=== PATIENT | female | born 1960 | race Caucasian/White ===

== ENCOUNTER 2016-10-15 14:33 | Outpatient (CLI) | payer MEDICARE, MEDICAID ==
[2016-10-15 15:40] LABS: Free T4 (Free Thyroxine) 0.7 ng/dL (0.70-1.48); Thyroid Stimulating Hormone 1.9238 uIU/mL (0.35-4.94)
== END 2016-10-15 14:34 | disposition home or self-care (01) ==
LOC: MADLABBHPM 14:33
PROVIDERS: ATTEND Family Medicine
DX: E03.9 Hypothyroidism, unspecified (principal)
CPT/HCPCS: 36415; 84439; 84443

== ENCOUNTER 2016-12-22 13:10 | Emergency (ER) | payer MEDICARE, MEDICAID ==
[~2016-12-22 13:10] MED LIST: Dextrose 5 % And 0.9 % NaCl 1000 ml Bag ONE
[2016-12-22 13:57] LABS: #Basophils 0.1 thou/uL (0.0-0.2); #Eosinphils 0.1 thou/uL (0.0-0.7); #Lymphocytes 1.6 thou/uL (1.20-3.40); #Monocytes 0.4 thou/uL (0.11-0.59); %Basophils 1.4 % (0.0-1.0); %Eosinophils 1.3 % (0.0-10.0); %Lymphocytes 30.6 % (21.0-51.0); %Monocytes 7.9 % (0.0-10.0); %Neutrophils 58.9 % (42.0-75.0); Hemoglobin 14.1 g/dL (12.0-16.0); MDiff Complete? YES; Macrocytosis SLIGHT = 6-15 cells (100X) (0-5/hpf); Mean Corpuscular HGB CONC 33.9 g/dL (32.0-36.0); Mean Corpuscular Hemoglobin 35.5 pg (27.0-31.0); Mean Corpuscular Volume 104.7 fl (81.0-99.0); Mean Platelet Volume 6.3 fL (7.4-10.4); PLT Morphology Comment Appears Adequate; Platelet Count 175 thou/uL (130-400); RBC Distribution Width 11.5 % (11.5-14.5); Red Blood Cell (RBC) Count 3.98 mill/uL (4.20-5.40); White Blood Cell (WBC) Count 5.1 thou/uL (4.8-10.8)
[2016-12-22 14:05] LABS: ALT (SGPT) 14 U/L (0-55); AST (SGOT) 13 U/L (5-34); Albumin 3.6 g/dL (3.5-5.0); Alkaline Phosphatase 78 U/L (40-150); Anion Gap 10 mmol/L (10-20); BUN (Urea Nitrogen) 10 mg/dL (9.8-20.1); Bilirubin, Total 0.3 mg/dL (0.2-1.2); Calc. Creatinine Clearance 0 mL/min (70-130); Calcium 8.6 mg/dL (7.8-10.44); Carbon Dioxide 22 mmol/L (22-29); Chloride 110 mmol/L (98-107); Estimated GFR-MDRD 73; Globulin 2.2 g/dL (2.4-3.5); Glucose 99 mg/dL (70-105); Potassium 4.2 mmol/L (3.5-5.1); Protein, Total 5.8 g/dL (6.0-8.3); Sodium 138 mmol/L (136-145)
[2016-12-22 14:07] LABS: CKMB 2.2 ng/mL (0-6.6); Troponin I Less than 0.010 ng/mL (< 0.028)
== END 2016-12-22 16:25 | disposition home or self-care (01) ==
LOC: MADERS 13:10
DX: E86.0 Dehydration (principal); E03.9 Hypothyroidism, unspecified; G43.909 Migraine, unspecified, not intractable, without status migrainosus; F17.210 Nicotine dependence, cigarettes, uncomplicated; F31.9 Bipolar disorder, unspecified; Z79.899 Other long term (current) drug therapy
CPT/HCPCS: 36415; 80053; 82553; 84443; 84484; 85025; 93005; 96360; 96361; J7042

== ENCOUNTER 2016-12-29 09:02 | Emergency (ER) | payer MEDICARE, MEDICAID ==
--- NOTE | 2016-12-29 10:22 | CT ---
BRAIN CT WITHOUT IV CONTRAST: Date: 12/29/16 HISTORY: 56-year-old female with altered mental status. COMPARISON: 03/17/16. FINDINGS: Old small focus of encephalomalacia in the right posterior parietal lobe, evidence for an old infarc t or other old insult. No focal mas or midline shift. No intra or extra-axial hemorrhage. Sinuses an d mastoids are clear. IMPRESSION: Stable small focus of right posterior parietal encephalomalacia. No mass or bleed, or other acute pr ocess. POS: [facility]
[2016-12-29] MEDS ORDERED: Acetaminophen 500 MG TAB ONE (10:56)
[2016-12-29] MEDS ORDERED: Ibuprofen 600 MG TAB ONE (10:56)
--- NOTE | 2016-12-29 11:01 | RAD ---
THREE VIEWS RIGHT HAND: Comparison: 03-22-15 History: Fall with right hand pain. FINDINGS: Three views of the right hand shows no evidence of acute fracture or dislocation. There are small os seous erosions surrounding the DIP joint of the middle finger. No focal soft tissue swelling is seen . IMPRESSION: 1. No evidence of acute osseous abnormality. 2. Degenerative changes involving the DIP joint of the middle finger. POS: [facility]
== END 2016-12-29 11:10 ==
LOC: MADERS 09:02
DX: S60.221A Contusion of right hand, initial encounter (principal); E03.9 Hypothyroidism, unspecified; Z86.73 Personal history of transient ischemic attack (TIA), and cerebral infarction without residual deficits; F32.9 Major depressive disorder, single episode, unspecified; F17.210 Nicotine dependence, cigarettes, uncomplicated; Z79.899 Other long term (current) drug therapy; W22.8XXA Striking against or struck by other objects, initial encounter
CPT/HCPCS: 70450

== ENCOUNTER 2017-01-13 17:03 | Emergency (ER) | payer MEDICARE, OTHER ==
[~2017-01-13 17:03] MED LIST changes: +Sodium Chloride 0.9% 1,000 ML BAG ONE
[2017-01-13 18:03] LABS: #Basophils 0.1 thou/uL (0.0-0.2); #Eosinphils 0.1 thou/uL (0.0-0.7); #Lymphocytes 1.7 thou/uL (1.20-3.40); #Monocytes 0.4 thou/uL (0.11-0.59); #Neutrophils 2.3 thou/uL (1.40-6.50); %Basophils 1.8 % (0.0-1.0); %Eosinophils 1.3 % (0.0-10.0); %Lymphocytes 38.8 % (21.0-51.0); %Monocytes 7.7 % (0.0-10.0); %Neutrophils 50.3 % (42.0-75.0); Anisocytosis SLIGHT = 6-15 cells (100X) (0-5/hpf); Hemoglobin 14.9 g/dL (12.0-16.0); MDiff Complete? YES; Mean Corpuscular HGB CONC 33.8 g/dL (32.0-36.0); Mean Corpuscular Volume 103.8 fl (81.0-99.0); Mean Platelet Volume 6.2 fL (7.4-10.4); Platelet Count 164 thou/uL (130-400); RBC Distribution Width 11.1 % (11.5-14.5); Red Blood Cell (RBC) Count 4.25 mill/uL (4.20-5.40); White Blood Cell (WBC) Count 4.5 thou/uL (4.8-10.8)
[2017-01-13] MEDS ORDERED: Ondansetron HCl/PF 4 MG/2 ML Vial ONE (18:03)
[2017-01-13 18:17] LABS: ALT (SGPT) 15 U/L (0-55); AST (SGOT) 14 U/L (5-34); Albumin 3.9 g/dL (3.5-5.0); Alcohol Less than 10 mg/dL (Less than 10); Alkaline Phosphatase 81 U/L (40-150); Anion Gap 12 mmol/L (10-20); BUN (Urea Nitrogen) 17 mg/dL (9.8-20.1); Bilirubin, Total 0.3 mg/dL (0.2-1.2); Calc. Creatinine Clearance 0 mL/min (70-130); Calcium 8.9 mg/dL (7.8-10.44); Carbon Dioxide 20 mmol/L (22-29); Chloride 112 mmol/L (98-107); Estimated GFR-MDRD 75; Globulin 2.2 g/dL (2.4-3.5); Glucose 102 mg/dL (70-105); Potassium 3.9 mmol/L (3.5-5.1); Protein, Total 6.1 g/dL (6.0-8.3); Sodium 140 mmol/L (136-145)
[2017-01-13 18:40] LABS: Blood, Urine Trace (Negative); Clarity Cloudy (Clear); Glucose, Urine (Dipstick) Negative (Negative); Leukocyte Negative (Negative); Nitrite Negative (Negative); Protein, Urine (Dipstick) Negative (Neg-Trace); pH, Urine 5.5 (5.0-9.0)
[2017-01-13 18:43] LABS: Specific Gravity, Urine 1.022 (1.002-1.036)
[2017-01-13 18:44] LABS: Bilirubin Negative (Negative); Icto Negative (Negative)
[2017-01-13 18:48] LABS: Bacteria/HPF 2+ HPF (None Seen); WBC/HPF 0-3 HPF (0-3)
[2017-01-13 18:49] LABS: Crystals/HPF 1+ CA OXALATE HPF (Negative)
[2017-01-13 18:50] LABS: Amphetamine Not Detected (NotDetected); Barbiturates Screen Not Detected (NotDetected); Benzodiazepine Screen Detected (NotDetected); Cocaine Metabolite Screen Not Detected (NotDetected); Medtox Control Line Valid? VALID (VALID); Methadone Not Detected (NotDetected); Methamphetamine Not Detected (NotDetected); Opiate Screen Not Detected (NotDetected); Oxycodone Screen Not Detected (NotDetected); Phencyclidine (PCP) Not Detected (NotDetected); THC/Cannabinoid Screen Not Detected (NotDetected); Tricyclic Screen Detected (NotDetected)
== END 2017-01-13 19:45 | disposition home or self-care (01) ==
LOC: MADERS 17:03
DX: F32.9 Major depressive disorder, single episode, unspecified (principal); E86.0 Dehydration; G43.909 Migraine, unspecified, not intractable, without status migrainosus; F17.210 Nicotine dependence, cigarettes, uncomplicated
CPT/HCPCS: 80053; 80306; 80307; 81003; 81015; 85025; 96361; 96374; J2405; J7042; J7050

== ENCOUNTER 2017-04-05 13:02 | Outpatient (CLI) | payer MEDICARE, OTHER ==
[2017-04-05 13:27] LABS: PTT 43.2 SEC (22.9-36.1); Prothrombin Time 13.1 SEC (12.0-14.7)
[2017-04-05 13:37] LABS: ALT (SGPT) 9 U/L (8-55); AST (SGOT) 12 U/L (5-34); Albumin 3.7 g/dL (3.5-5.0); Alkaline Phosphatase 85 U/L (40-150); Anion Gap 14 mmol/L (10-20); BUN (Urea Nitrogen) 11 mg/dL (9.8-20.1); Bilirubin, Total 0.3 mg/dL (0.2-1.2); Calc. Creatinine Clearance 0 mL/min (70-130); Calcium 8.2 mg/dL (7.8-10.44); Carbon Dioxide 19 mmol/L (22-29); Chloride 93 mmol/L (98-107); Estimated GFR-MDRD 79; Globulin 3.4 g/dL (2.4-3.5); Glucose 89 mg/dL (70-105); Potassium 4.3 mmol/L (3.5-5.1); Protein, Total 7.1 g/dL (6.0-8.3); Sodium 122 mmol/L (136-145)
[2017-04-05 13:40] LABS: #Basophils 0.1 thou/uL (0.0-0.2); #Eosinphils 0.1 thou/uL (0.0-0.7); #Lymphocytes 1.4 thou/uL (1.20-3.40); #Monocytes 0.3 thou/uL (0.11-0.59); #Neutrophils 3.8 thou/uL (1.40-6.50); %Basophils 1.3 % (0.0-1.0); %Eosinophils 1.2 % (0.0-10.0); %Lymphocytes 24.7 % (21.0-51.0); %Monocytes 5.9 % (0.0-10.0); Anisocytosis SLIGHT = 6-15 cells (100X) (0-5/hpf); Hemoglobin 12.8 g/dL (12.0-16.0); MDiff Complete? YES; Mean Corpuscular HGB CONC 34.9 g/dL (32.0-36.0); Mean Corpuscular Hemoglobin 35.4 pg (27.0-31.0); Mean Corpuscular Volume 101.6 fl (81.0-99.0); Mean Platelet Volume 4.9 fL (7.4-10.4); PLT Morphology Comment Appears Adequate; Platelet Count 223 thou/uL (130-400); RBC Distribution Width 12.4 % (11.5-14.5); White Blood Cell (WBC) Count 5.6 thou/uL (4.8-10.8)
[2017-04-05 14:16] LABS: Free T4 (Free Thyroxine) 0.83 ng/dL (0.70-1.48); Thyroid Stimulating Hormone 0.4059 uIU/mL (0.35-4.94)
== END 2017-04-05 13:03 | disposition home or self-care (01) ==
LOC: MADLABBHPM 13:02
PROVIDERS: ATTEND Family Medicine
DX: E03.9 Hypothyroidism, unspecified (principal); R23.8 Other skin changes; K14.8 Other diseases of tongue
CPT/HCPCS: 36415; 80053; 84439; 84443; 85025; 85610; 85730

== ENCOUNTER 2017-05-14 09:46 | Outpatient (CLI) | payer MEDICARE, OTHER ==
[2017-05-14 10:56] LABS: ALT (SGPT) 19 U/L (8-55); AST (SGOT) 17 U/L (5-34); Albumin 4.6 g/dL (3.5-5.0); Alkaline Phosphatase 96 U/L (40-150); Anion Gap 12 mmol/L (10-20); BUN (Urea Nitrogen) 9 mg/dL (9.8-20.1); Bilirubin, Total 0.3 mg/dL (0.2-1.2); Calc. Creatinine Clearance 0 mL/min (70-130); Calcium 9.4 mg/dL (7.8-10.44); Carbon Dioxide 25 mmol/L (22-29); Chloride 109 mmol/L (98-107); Estimated GFR-MDRD 66; Globulin 2.9 g/dL (2.4-3.5); Glucose 106 mg/dL (70-105); Potassium 4.2 mmol/L (3.5-5.1); Protein, Total 7.5 g/dL (6.0-8.3); Sodium 142 mmol/L (136-145)
[2017-05-14 10:58] LABS: Clarity Clear (Clear)
[2017-05-14 10:59] LABS: Bilirubin Negative (Negative); Blood, Urine Trace (Negative); Glucose, Urine (Dipstick) Negative (Negative); Leukocyte Negative (Negative); Nitrite Negative (Negative); Protein, Urine (Dipstick) Negative (Neg-Trace); Urobilinogen 0.2 mg/dL (0.2-1.0); pH, Urine 6.5 (5.0-9.0)
[2017-05-14 11:20] LABS: Hemoglobin A1c 4.4 % (4.0-6.0)
[2017-05-14 11:22] LABS: Bacteria/HPF Rare-Few HPF (None Seen); Cocaine Metabolite Screen Not Detected (NotDetected); Methamphetamine Not Detected (NotDetected); Opiate Screen Not Detected (NotDetected); Phencyclidine (PCP) Not Detected (NotDetected); RBC/HPF 0-3 HPF (0-3); THC/Cannabinoid Screen Not Detected (NotDetected); WBC/HPF 0-3 HPF (0-3); Yeast-All Forms Rare HPF (None Seen)
[2017-05-14 11:23] LABS: Amphetamine Not Detected (NotDetected); Barbiturates Screen Not Detected (NotDetected); Benzodiazepine Screen Detected (NotDetected); Medtox Control Line Valid? VALID (VALID); Methadone Not Detected (NotDetected); Oxycodone Screen Not Detected (NotDetected); Tricyclic Screen Detected (NotDetected)
[2017-05-14 11:44] LABS: Free T4 (Free Thyroxine) 0.86 ng/dL (0.70-1.48); Thyroid Stimulating Hormone 0.2611 uIU/mL (0.35-4.94)
[2017-05-14 11:48] LABS: #Basophils 0.1 thou/uL (0.0-0.2); #Lymphocytes 1.8 thou/uL (1.20-3.40); #Monocytes 0.5 thou/uL (0.11-0.59); #Neutrophils 6.3 thou/uL (1.40-6.50); %Basophils 1.3 % (0.0-1.0); %Eosinophils 0.5 % (0.0-10.0); %Lymphocytes 20.3 % (21.0-51.0); %Monocytes 5.4 % (0.0-10.0); %Neutrophils 72.6 % (42.0-75.0); MDiff Complete? YES; Macrocytosis SLIGHT = 6-15 cells (100X) (0-5/hpf); Mean Corpuscular Hemoglobin 35.3 pg (27.0-31.0); Mean Corpuscular Volume 106.9 fl (81.0-99.0); Platelet Count 249 thou/uL (130-400); RBC Distribution Width 12.5 % (11.5-14.5); Red Blood Cell (RBC) Count 4.24 mill/uL (4.20-5.40); White Blood Cell (WBC) Count 8.7 thou/uL (4.8-10.8)
== END 2017-05-14 09:47 | disposition home or self-care (01) ==
LOC: MADLABBHPM 09:46
PROVIDERS: ATTEND Family Medicine
DX: R41.82 Altered mental status, unspecified (principal)
CPT/HCPCS: 36415; 80053; 80306; 81001; 83036; 84439; 84443; 85025

== ENCOUNTER 2017-05-24 09:46 | Emergency (ER) | payer MEDICARE, OTHER ==
[2017-05-24 12:18] LABS: #Eosinphils 0.1 thou/uL (0.0-0.7); #Lymphocytes 1.5 thou/uL (1.20-3.40); #Monocytes 0.3 thou/uL (0.11-0.59); #Neutrophils 3.4 thou/uL (1.40-6.50); %Basophils 0.9 % (0.0-1.0); %Eosinophils 1.3 % (0.0-10.0); %Lymphocytes 27.8 % (21.0-51.0); %Monocytes 5.6 % (0.0-10.0); %Neutrophils 64.5 % (42.0-75.0); Hemoglobin 13.7 g/dL (12.0-16.0); Mean Corpuscular Hemoglobin 34.3 pg (27.0-31.0); Mean Corpuscular Volume 107.2 fl (81.0-99.0); Mean Platelet Volume 5.2 fL (7.4-10.4); Platelet Count 190 thou/uL (130-400); RBC Distribution Width 12.2 % (11.5-14.5); Red Blood Cell (RBC) Count 3.99 mill/uL (4.20-5.40); White Blood Cell (WBC) Count 5.3 thou/uL (4.8-10.8)
[2017-05-24 12:29] LABS: Anisocytosis SLIGHT = 6-15 cells (100X) (0-5/hpf); Macrocytosis SLIGHT = 6-15 cells (100X) (0-5/hpf)
[2017-05-24 12:30] LABS: PLT Morphology Comment Appears Adequate
[2017-05-24 12:32] LABS: ALT (SGPT) 21 U/L (8-55); AST (SGOT) 15 U/L (5-34); Albumin 3.8 g/dL (3.5-5.0); Alkaline Phosphatase 81 U/L (40-150); Anion Gap 10 mmol/L (10-20); BUN (Urea Nitrogen) 15 mg/dL (9.8-20.1); Bilirubin, Total 0.3 mg/dL (0.2-1.2); Calc. Creatinine Clearance 0 mL/min (70-130); Calcium 8.5 mg/dL (7.8-10.44); Carbon Dioxide 22 mmol/L (22-29); Chloride 112 mmol/L (98-107); Estimated GFR-MDRD 72; Globulin 2.5 g/dL (2.4-3.5); Glucose 96 mg/dL (70-105); Potassium 3.9 mmol/L (3.5-5.1); Protein, Total 6.3 g/dL (6.0-8.3); Sodium 140 mmol/L (136-145)
[2017-05-24 12:42] LABS: Clarity Clear (Clear); Specific Gravity, Urine 1.025 (1.005-1.030)
[2017-05-24 12:43] LABS: Bilirubin Negative (Negative); Blood, Urine Negative (Negative); Glucose, Urine (Dipstick) Negative (Negative); Leukocyte Negative (Negative); Nitrite Negative (Negative); Protein, Urine (Dipstick) Negative (Neg-Trace)
[2017-05-24 12:45] LABS: RBC/HPF 0-3 HPF (0-3); WBC/HPF 0-3 HPF (0-3)
[2017-05-24 12:46] LABS: Bacteria/HPF Rare-Few HPF (None Seen)
--- NOTE | 2017-05-24 13:01 | CT ---
HEAD CT WITHOUT CONTRAST: Date: 05/24/17 COMPARISON: 12/29/16. HISTORY: Weakness, confusion, memory loss. TECHNIQUE: Serial axial CT imaging at 5 mm intervals from vertex through skull base without contrast. FINDINGS: Imaged paranasal sinuses and mastoid air cells are well aerated. No displaced calvarial fracture. No intracranial hemorrhage, midline shift, mass effect, or ventricular enlargement. Stable area of pos teromedial encephalomalacia noted within the right parietooccipital region. No acute findings are se en. IMPRESSION: Stable head CT. No intracranial hemorrhage noted. POS: [facility]
== END 2017-05-24 16:37 | disposition home or self-care (01) ==
LOC: MADERS 09:46
DX: R53.1 Weakness (principal); F03.90 Unspecified dementia, unspecified severity, without behavioral disturbance, psychotic disturbance, mood disturbance, and anxiety; E55.9 Vitamin D deficiency, unspecified; E03.9 Hypothyroidism, unspecified; F31.9 Bipolar disorder, unspecified; F50.9 Eating disorder, unspecified; F17.210 Nicotine dependence, cigarettes, uncomplicated; Z86.73 Personal history of transient ischemic attack (TIA), and cerebral infarction without residual deficits; Z79.82 Long term (current) use of aspirin; Z79.899 Other long term (current) drug therapy
CPT/HCPCS: 36415; 70450; 80053; 81001; 84443; 85025; 87086

== ENCOUNTER 2017-10-15 01:14 | Outpatient (CLI) | payer MEDICARE, MEDICAID | END 2017-10-15 01:15 | disposition home or self-care (01) | LOC: MADLABSP 01:14 | PROVIDERS: ATTEND Family Medicine | DX: J11.1 Influenza due to unidentified influenza virus with other respiratory manifestations (principal) | CPT/HCPCS: 36415; 87804 ==

== ENCOUNTER 2017-10-19 11:19 | Emergency (ER) | payer MEDICARE, OTHER ==
[2017-10-19 12:11] LABS: #Basophils 0.1 thou/uL (0.0-0.2); #Eosinphils 0.2 thou/uL (0.0-0.7); #Lymphocytes 1.8 thou/uL (1.20-3.40); #Monocytes 0.3 thou/uL (0.11-0.59); #Neutrophils 2.5 thou/uL (1.40-6.50); %Basophils 1.3 % (0.0-1.0); %Eosinophils 3.9 % (0.0-10.0); %Lymphocytes 36.8 % (21.0-51.0); %Monocytes 6.5 % (0.0-10.0); %Neutrophils 51.5 % (42.0-75.0); Hemoglobin 12.2 g/dL (12.0-16.0); MDiff Complete? YES; Macrocytosis SLIGHT = 6-15 cells (100X) (0-5/hpf); Mean Corpuscular HGB CONC 32.2 g/dL (32.0-36.0); Mean Corpuscular Hemoglobin 34.2 pg (27.0-31.0); Mean Corpuscular Volume 106.1 fl (81.0-99.0); Mean Platelet Volume 5.5 fL (7.4-10.4); Platelet Count 186 thou/uL (130-400); Red Blood Cell (RBC) Count 3.57 mill/uL (4.20-5.40); White Blood Cell (WBC) Count 4.8 thou/uL (4.8-10.8)
[2017-10-19 12:27] LABS: Anion Gap 10 mmol/L (10-20); BUN (Urea Nitrogen) 14 mg/dL (9.8-20.1); Calc. Creatinine Clearance 0 mL/min (70-130); Calcium 8.7 mg/dL (7.8-10.44); Carbon Dioxide 22 mmol/L (22-29); Chloride 112 mmol/L (98-107); Estimated GFR-MDRD 86; Glucose 95 mg/dL (70-105); Potassium 4.3 mmol/L (3.5-5.1); Sodium 140 mmol/L (136-145)
[2017-10-19 12:30] LABS: Acetaminophen Less than 6.0 mcg/mL (10.0-30.0); Alcohol Less than 10 mg/dL (Less than 10); Salicylate Less than 8.0 mg/dL (15.0-30.0)
[2017-10-19 12:42] LABS: Bilirubin Negative (Negative); Blood, Urine Negative (Negative); Glucose, Urine (Dipstick) Negative (Negative); Leukocyte Negative (Negative); Nitrite Negative (Negative); Protein, Urine (Dipstick) Negative (Neg-Trace); Specific Gravity, Urine 1.025 (1.005-1.030)
[2017-10-19 12:45] LABS: Clarity Hazy (Clear)
== END 2017-10-19 14:25 ==
LOC: MADERS 11:19
DX: R41.0 Disorientation, unspecified (principal); R41.82 Altered mental status, unspecified; I10 Essential (primary) hypertension; E03.9 Hypothyroidism, unspecified; Z86.73 Personal history of transient ischemic attack (TIA), and cerebral infarction without residual deficits; G43.909 Migraine, unspecified, not intractable, without status migrainosus; F41.9 Anxiety disorder, unspecified; F31.9 Bipolar disorder, unspecified; F17.210 Nicotine dependence, cigarettes, uncomplicated; Z79.899 Other long term (current) drug therapy; Z79.82 Long term (current) use of aspirin
CPT/HCPCS: 36415; 80048; 80307; 81003; 84443; 85025; 99285

== ENCOUNTER 2017-11-03 14:18 | Outpatient (CLI) | payer MEDICARE, OTHER ==
--- NOTE | 2017-11-03 16:55 | CT ---
RIGHT LOWER EXTREMITY CT SCAN WITHOUT IV CONTRAST: History: 57-year-old female with history of arthritis. Comparison: 03-26-14 FINDINGS: There has been some healing of the previously noted two internal fixation screw defects and intramedu llary jayne defect that were well demonstrated on the prior study of 03-26-14. Several internal fixation screw defects are noted through the distal tibia which are also less well seen than on the prior julia dy. There is fusion of the tibiotalar region. The subtalar joints are not fused and there are some ar throsis changes, particularly of the lateral subtalar joint. There is old resection of the distal fib sapphire. Calcaneal plantar and Achilles enthesophytes are noted. No evidence for acute fracture. There is heterogeneous bony demineralization. IMPRESSION: Numerous defects from previous internal fixation screws and tibial intermedullary jayne which are less well demonstrated than on the prior 03-26-14 study. There is fusion of the tibiotalar joint. There is no significant effusion of the subtalar joints with arthrosis changes particularly noted involving th e posterior subtalar joint with the medial subtalar joint and the calcaneal cuboid joints being essen tially unremarkable. No evidence for acute fracture. No evidence for new bony erosive or obstructive change. Calcaneal plantar and Achilles enthesophytic change. POS: [facility]
== END 2017-11-03 14:19 | disposition home or self-care (01) ==
LOC: MADRAD 14:18
PROVIDERS: ATTEND Orthopaedic Surgery
DX: M19.071 Primary osteoarthritis, right ankle and foot (principal); Z98.890 Other specified postprocedural states

== ENCOUNTER 2018-02-24 09:11 | Outpatient (CLI) | payer MEDICARE, OTHER ==
--- NOTE | 2018-02-24 11:13 | CT ---
CT BRAIN: HISTORY: Blurred vision. Dizziness. COMPARISON: 05/24/2017 TECHNIQUE: Noncontrast enhanced CT images of the brain are obtained on 02/24/2018. FINDINGS: Noncontrast enhanced CT images of the brain demonstrate an old area of stroke in the right posterior parietal cortex. The brain is unremarkable. No evidence of intracranial masses, hemorrhages, strokes, or contusions s een. The ventricles are of normal size. 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 No evidence of acute intracranial abnormality seen. POS: [facility]
== END 2018-02-24 09:12 | disposition home or self-care (01) ==
LOC: MADCT 09:11
PROVIDERS: ATTEND Family Medicine
DX: G44.52 New daily persistent headache (NDPH) (principal); H53.8 Other visual disturbances; Z86.73 Personal history of transient ischemic attack (TIA), and cerebral infarction without residual deficits
CPT/HCPCS: 70450

== ENCOUNTER 2018-05-20 15:46 | Outpatient (CLI) | payer MEDICARE, OTHER ==
--- NOTE | 2018-05-20 16:31 | CT ---
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 COMPARISON: 11/03/17. Since the prior study, there has been interval placement of a lateral metal plate and multiple screws stabilizing the distal tibia, talus, and subtalar joint regions as well as a somewhat oblique vertic ally oriented screw noted through the tibia, talar, and subtalar joints. Again noted is fusion of th e tibiotalar joint. There is fusion of the posterior subtalar joint. The medial subtalar joint still has synchondrosis, although is markedly narrowed when compared to the old CT. Very heterogeneous bone demineralization. Extensive old deformity. The talonavicular and calcaneocuboid joints are still pre sent with some subchondral cystic changes. There appears to be overall improvement in the alignment o f the subtalar joints. IMPRESSION: Extensive metal plate and multiple screw stabilization of the ankle from the tibia through the talus into the calcaneus. Evidence for fusion of the posterior subtalar joint. There is a persistent but na rrowed synchondrosis of the medial subtalar joint with overall alignment appearing to be somewhat imp roved from the prior study. No new fracture or dislocation. There is some soft tissue swelling with s ome focal thickening of the soft tissues laterally over the distal tibia region possibly related to i nterval surgical placement of the metal plate. POS: [facility]
== END 2018-05-20 15:47 | disposition home or self-care (01) ==
LOC: MADRAD 15:46
PROVIDERS: ATTEND Orthopaedic Surgery
DX: T84.84XA Pain due to internal orthopedic prosthetic devices, implants and grafts, initial encounter (principal); M19.92 Post-traumatic osteoarthritis, unspecified site; M79.89 Other specified soft tissue disorders

== ENCOUNTER 2018-11-01 10:16 | Outpatient (CLI) | payer MEDICARE, MEDICAID ==
--- NOTE | 2018-11-01 11:30 | CT ---
CT RIGHT LOWER EXTREMITY WITHOUT CONTRAST: INDICATIONS: History of arthritis and painful hardware. COMPARISON: Prior exam dated 05/20/2018 from [facility]. FINDINGS: Since the comparison examination, there has been revision of the subtalar arthrodesis fusion hardware . There has been removal of the lateral plate and screw construct with revision of the subtalar join t arthrodesis screws. There are now two separate screws entering from a plantar dorsal angulation, traversing the posterior tuberosity of the calcaneus and entering into the anterior aspect of the distal tibial metaphysis. The screws project beyond the cortex of the anterior tibia, without contact of the traversing extens or tendons. There is some residual lucency seen at the arthrodesis site of the posterior subtalar víctor int, consistent with an incomplete osseous corporation. There is an additional screw entering into an anterior-medial approach from talar dome, extending thr ough the anterior calcaneal process. There appears to be solid osseous incorporation of bone graft n ear this arthrodesis screw, into the anterior calcaneal process and talar head, as well as extending from the talar head to the sustentaculum idris. There is stable post surgical change of a distal fibulectomy. There is prominent enthesopathic [place] e off the posterior calcaneus. There is prominent disuse osteopenia of the midfoot and forefoot. An accessory ossicle is seen adjacent to the navicula. Lisfranc alignment is preserved. No acute frac ture is grossly evident. IMPRESSION: 1. Revision of the previously seen subtalar arthrodesis, involving the right hindfoot. There is carla e residual, incomplete osseous incorporation involving the posterior subtalar joint. The anterior an d middle subtalar joint demonstrate osseous incorporation. 2. Complete fusion of the tibiotalar joint. Stable distal fibulectomy. 3. Moderate degenerative change at the talonavicular calcaneonavicular joint. 4. Diffuse osteopenia. POS: [facility]
== END 2018-11-01 10:17 | disposition home or self-care (01) ==
LOC: MADCT 10:16
PROVIDERS: ATTEND Orthopaedic Surgery
DX: M19.071 Primary osteoarthritis, right ankle and foot (principal); T84.84XA Pain due to internal orthopedic prosthetic devices, implants and grafts, initial encounter; M85.871 Other specified disorders of bone density and structure, right ankle and foot

== ENCOUNTER 2018-11-05 21:08 | Emergency (ER) | payer MEDICARE, MEDICAID | END 2018-11-06 | LOC: MADERS 21:08 | DX: F10.129 Alcohol abuse with intoxication, unspecified (principal); Z79.899 Other long term (current) drug therapy; G43.909 Migraine, unspecified, not intractable, without status migrainosus; E03.9 Hypothyroidism, unspecified; F60.9 Personality disorder, unspecified; F41.9 Anxiety disorder, unspecified; I10 Essential (primary) hypertension; F31.9 Bipolar disorder, unspecified; G47.00 Insomnia, unspecified; E87.6 Hypokalemia; F17.210 Nicotine dependence, cigarettes, uncomplicated; Z79.82 Long term (current) use of aspirin; Z86.73 Personal history of transient ischemic attack (TIA), and cerebral infarction without residual deficits; Y90.8 Blood alcohol level of 240 mg/100 ml or more | CPT/HCPCS: 80307; 96360 ==

== ENCOUNTER 2020-01-11 23:51 | Emergency (ER) | payer MEDICARE, MEDICAID ==
[~2020-01-11 23:51] MED LIST changes: -Dextrose 5 % And 0.9 % NaCl 1000 ml Bag ONE
[2020-01-12 00:35] LABS: #Basophils 0.2 thou/uL (0.0-0.2); #Eosinphils 0.2 thou/uL (0.0-0.7); #Lymphocytes 2.9 thou/uL (1.20-3.40); #Monocytes 0.5 thou/uL (0.11-0.59); #Neutrophils 5.2 thou/uL (1.40-6.50); %Basophils 1.7 % (0.0-1.0); %Eosinophils 2.3 % (0.0-10.0); %Lymphocytes 32.4 % (21.0-51.0); %Monocytes 5.6 % (0.0-10.0); %Neutrophils 57.9 % (42.0-75.0); Hemoglobin 13.3 g/dL (12.0-16.0); Mean Corpuscular HGB CONC 32.5 g/dL (32.0-36.0); Mean Corpuscular Hemoglobin 33.3 pg (27.0-31.0); Mean Corpuscular Volume 102.5 fL (78.0-98.0); Mean Platelet Volume 4.9 fL (7.4-10.4); Platelet Count 265 thou/uL (130-400); RBC Distribution Width 15.2 % (11.5-14.5)
[2020-01-12 00:53] LABS: Acetaminophen Less than 6.0 mcg/mL (10.0-30.0); Alcohol 108 mg/dL (Less than 10); Salicylate Less than 8.0 mg/dL (15.0-30.0)
[2020-01-12 00:56] LABS: ALT (SGPT) 12 U/L (8-55); AST (SGOT) 11 U/L (5-34); Albumin 3.6 g/dL (3.5-5.0); Alcohol 109 mg/dL (Less than 10); Alkaline Phosphatase 106 U/L (40-110); Anion Gap 14 mmol/L (10-20); BUN (Urea Nitrogen) 8 mg/dL (9.8-20.1); Bilirubin, Total 0.2 mg/dL (0.2-1.2); Calc. Creatinine Clearance 0 mL/min (70-130); Calcium 8.5 mg/dL (7.8-10.44); Carbon Dioxide 27 mmol/L (22-29); Chloride 106 mmol/L (98-107); Estimated GFR-MDRD 77; Globulin 2.6 g/dL (2.4-3.5); Glucose 92 mg/dL (70-105); Potassium 3.9 mmol/L (3.5-5.1); Protein, Total 6.2 g/dL (6.0-8.3); Sodium 143 mmol/L (136-145)
[2020-01-12 01:47] LABS: Bilirubin Negative (Negative); Blood, Urine Negative (Negative); Clarity Slightly Cloudy (Clear); Glucose, Urine (Dipstick) Negative (Negative); Leukocyte Negative (Negative); Nitrite Negative (Negative); Protein, Urine (Dipstick) Negative (Neg-Trace)
[2020-01-12 01:56] LABS: Amphetamine Not Detected (NotDetected); Barbiturates Screen Not Detected (NotDetected); Benzodiazepine Screen Not Detected (NotDetected); Cocaine Metabolite Screen Not Detected (NotDetected); Medtox Control Line Valid? VALID (VALID); Methadone Not Detected (NotDetected); Methamphetamine Not Detected (NotDetected); Opiate Screen Not Detected (NotDetected); Oxycodone Screen Not Detected (NotDetected); Phencyclidine (PCP) Not Detected (NotDetected); THC/Cannabinoid Screen Not Detected (NotDetected); Tricyclic Screen Detected (NotDetected)
== END 2020-01-12 06:42 | disposition home or self-care (01) ==
LOC: MADERS 23:51
DX: F32.9 Major depressive disorder, single episode, unspecified (principal); I10 Essential (primary) hypertension; E03.9 Hypothyroidism, unspecified; F41.9 Anxiety disorder, unspecified; F17.210 Nicotine dependence, cigarettes, uncomplicated; G43.909 Migraine, unspecified, not intractable, without status migrainosus; F31.9 Bipolar disorder, unspecified; Z86.73 Personal history of transient ischemic attack (TIA), and cerebral infarction without residual deficits; Z79.899 Other long term (current) drug therapy
CPT/HCPCS: 80053; 80306; 80307; 81003; 85025; 93005; 96360; J7050

== ENCOUNTER 2020-10-21 09:03 | Emergency (ER) | payer MEDICARE, MEDICAID ==
[2020-10-21 10:20] LABS: #Basophils 0.1 thou/uL (0.0-0.2); #Eosinphils 0.1 thou/uL (0.0-0.7); #Lymphocytes 1.8 thou/uL (1.20-3.40); #Monocytes 0.4 thou/uL (0.11-0.59); #Neutrophils 2.5 thou/uL (1.40-6.50); %Basophils 1.3 % (0.0-1.0); %Lymphocytes 36.3 % (21.0-51.0); %Monocytes 7.7 % (0.0-10.0); %Neutrophils 51.7 % (42.0-75.0); Hemoglobin 13.8 g/dL (12.0-16.0); Mean Corpuscular HGB CONC 31.5 g/dL (32.0-36.0); Mean Corpuscular Hemoglobin 35.7 pg (27.0-31.0); Mean Corpuscular Volume 113.5 fL (78.0-98.0); Mean Platelet Volume 5.2 fL (7.4-10.4); Platelet Count 210 thou/uL (130-400); RBC Distribution Width 13.7 % (11.5-14.5); Red Blood Cell (RBC) Count 3.85 mill/uL (4.20-5.40); White Blood Cell (WBC) Count 4.9 thou/uL (4.8-10.8)
[2020-10-21 10:24] LABS: ALT (SGPT) 24 U/L (8-55); AST (SGOT) 32 U/L (5-34); Albumin 3.2 g/dL (3.5-5.0); Alkaline Phosphatase 127 U/L (40-110); Anion Gap 12 mmol/L (10-20); BUN (Urea Nitrogen) 7 mg/dL (9.8-20.1); Bilirubin, Total 0.3 mg/dL (0.2-1.2); CK (CPK) 45 U/L (29-168); Calc. Creatinine Clearance 0 mL/min (70-130); Calcium 8.6 mg/dL (7.8-10.44); Carbon Dioxide 32 mmol/L (22-29); Chloride 109 mmol/L (98-107); Globulin 2.5 g/dL (2.4-3.5); Glucose 98 mg/dL (70-105); Potassium 4.2 mmol/L (3.5-5.1); Protein, Total 5.7 g/dL (6.0-8.3); Sodium 149 mmol/L (136-145)
--- NOTE | 2020-10-21 10:25 | CT ---
Head CT without contrast 10/21/2020: COMPARISON: 02/24/2018 HISTORY: Possible stroke TECHNIQUE: Axial CT imaging at 5 mm intervals from vertex through skull base without contrast. Arguelles l and sagittal reformatted imaging obtained. FINDINGS: The visualized paranasal sinuses and mastoid air cells are well-aerated. No displaced priscila rial fracture is noted. There is a stable focal area of encephalomalacia involving the posterior right parietal region consis tent with an area of prior infarction. No intracranial hemorrhage, midline shift, or mass effect. No ventricular enlargement. IMPRESSION: Stable right encephalomalacia as above. No intracranial hemorrhage. If there is clinical concern for acute infarction, brain MRI advised.
--- NOTE | 2020-10-21 10:27 | RAD ---
RADIOGRAPH CHEST 1 VIEW: DATE: 10/21/2020 HISTORY: 60-year-old female with acute CVA. Concern for aspiration. FINDINGS: There are no air space densities, pulmonary edema, pneumothorax, or cardiomegaly. The lateral costop hrenic angles are sharp. IMPRESSION: No acute cardiopulmonary findings. bowen [] POS: [facility]
[2020-10-21 10:32] LABS: Anisocytosis SLIGHT = 6-15 cells (100X) (0-5/hpf)
[2020-10-21 10:33] LABS: Macrocytosis SLIGHT = 6-15 cells (100X) (0-5/hpf); Platelet Morphology Comment Appears Adequate
[2020-10-21 10:44] LABS: CKMB 1.6 ng/mL (0-6.6)
== END 2020-10-21 11:10 | disposition home or self-care (01) ==
LOC: MADERS 09:03
DX: I69.998 Other sequelae following unspecified cerebrovascular disease (principal); H54.40 Blindness, one eye, unspecified eye; I10 Essential (primary) hypertension; E55.9 Vitamin D deficiency, unspecified; E03.9 Hypothyroidism, unspecified; G43.909 Migraine, unspecified, not intractable, without status migrainosus; G47.00 Insomnia, unspecified; E87.6 Hypokalemia; F45.20 Hypochondriacal disorder, unspecified; F17.210 Nicotine dependence, cigarettes, uncomplicated; Z79.899 Other long term (current) drug therapy
CPT/HCPCS: 70450; 71045; 80053; 82550; 82553; 84484; 85025; 93005

== ENCOUNTER 2020-11-22 21:31 | Emergency (ER) | payer MEDICARE, OTHER ==
[2020-11-22 22:42] LABS: Hemoglobin 13.7 g/dL (12.0-16.0); Mean Corpuscular HGB CONC 32.1 g/dL (32.0-36.0); Mean Corpuscular Hemoglobin 34.8 pg (27.0-31.0); Mean Corpuscular Volume 108.4 fL (78.0-98.0); Mean Platelet Volume 5.2 fL (7.4-10.4); Platelet Count 296 thou/uL (130-400); RBC Distribution Width 13.2 % (11.5-14.5); Red Blood Cell (RBC) Count 3.93 mill/uL (4.20-5.40); White Blood Cell (WBC) Count 5.3 thou/uL (4.8-10.8)
[2020-11-22 22:47] LABS: #Basophils 0.1 thou/uL (0.0-0.2); #Eosinphils 0.2 thou/uL (0.0-0.7); #Monocytes 0.2 thou/uL (0.11-0.59); #Neutrophils 2.8 thou/uL (1.40-6.50); %Basophils 1.3 % (0.0-1.0); %Eosinophils 3.4 % (0.0-10.0); %Lymphocytes 37.7 % (21.0-51.0); %Monocytes 3.7 % (0.0-10.0); MDiff Complete? YES; Macrocytosis MODERATE=16-30 cells (100X) (0-5/hpf); Platelet Morphology Comment Appears Adequate
[2020-11-22 23:01] LABS: ALT (SGPT) 24 U/L (8-55); AST (SGOT) 26 U/L (5-34); Acetaminophen Less than 6.0 mcg/mL (10.0-30.0); Albumin 3.1 g/dL (3.5-5.0); Alcohol 75 mg/dL (Less than 10); Alkaline Phosphatase 149 U/L (40-110); Anion Gap 18 mmol/L (10-20); BUN (Urea Nitrogen) 5 mg/dL (9.8-20.1); Bilirubin, Total 0.3 mg/dL (0.2-1.2); Calc. Creatinine Clearance 0 mL/min (70-130); Calcium 8.6 mg/dL (7.8-10.44); Carbon Dioxide 27 mmol/L (22-29); Chloride 104 mmol/L (98-107); Globulin 2.8 g/dL (2.4-3.5); Glucose 105 mg/dL (70-105); Potassium 3.7 mmol/L (3.5-5.1); Protein, Total 5.9 g/dL (6.0-8.3); Salicylate Less than 8.0 mg/dL (15.0-30.0); Sodium 145 mmol/L (136-145)
[2020-11-22 23:14] LABS: Amphetamine Not Detected (NotDetected); Barbiturates Screen Not Detected (NotDetected); Benzodiazepine Screen Not Detected (NotDetected); Cocaine Metabolite Screen Not Detected (NotDetected); Medtox Control Line Valid? VALID (VALID); Methadone Not Detected (NotDetected); Methamphetamine Not Detected (NotDetected); Opiate Screen Not Detected (NotDetected); Oxycodone Screen Not Detected (NotDetected); Phencyclidine (PCP) Not Detected (NotDetected); THC/Cannabinoid Screen Detected (NotDetected); Tricyclic Screen Detected (NotDetected)
[2020-11-23] MEDS ORDERED: Bacitracin 1 PK ONE (02:03)
[2020-11-23] MEDS ORDERED: Boostrix 0.5 ML (Tdap) VIAL ONE (02:10)
== END 2020-11-23 02:28 | disposition home or self-care (01) ==
LOC: MADERS 21:31
DX: S61.411A Laceration without foreign body of right hand, initial encounter (principal); S61.511A Laceration without foreign body of right wrist, initial encounter; S81.812A Laceration without foreign body, left lower leg, initial encounter; X78.8XXA Intentional self-harm by other sharp object, initial encounter; F17.210 Nicotine dependence, cigarettes, uncomplicated; F12.10 Cannabis abuse, uncomplicated; F10.10 Alcohol abuse, uncomplicated; G89.29 Other chronic pain; F31.89 Other bipolar disorder
CPT/HCPCS: 36415; 80053; 80306; 80307; 84443; 85025; 90471; 90715

== ENCOUNTER 2021-02-26 10:01 | Outpatient (CLI) | payer MEDICARE, OTHER, MEDICAID | END 2021-02-26 10:02 | disposition home or self-care (01) | LOC: MADULT 10:01 | PROVIDERS: ATTEND Urology | DX: N13.30 Unspecified hydronephrosis (principal); R93.2 Abnormal findings on diagnostic imaging of liver and biliary tract | CPT/HCPCS: 76775 ==

== ENCOUNTER 2021-03-03 11:10 | Outpatient (CLI) | payer MEDICARE, OTHER ==
[2021-03-03 16:05] LABS: #Basophils 0.1 thou/uL (0.0-0.2); #Eosinphils 0.6 thou/uL (0.0-0.7); #Lymphocytes 1.1 thou/uL (1.20-3.40); #Monocytes 0.5 thou/uL (0.11-0.59); #Neutrophils 5.2 thou/uL (1.40-6.50); %Basophils 1.5 % (0.0-1.0); %Eosinophils 8.3 % (0.0-10.0); %Lymphocytes 14.6 % (21.0-51.0); %Monocytes 6.4 % (0.0-10.0); %Neutrophils 69.2 % (42.0-75.0); Hemoglobin 13.4 g/dL (12.0-16.0); Mean Corpuscular HGB CONC 33.4 g/dL (32.0-36.0); Mean Corpuscular Hemoglobin 33.3 pg (27.0-31.0); Mean Corpuscular Volume 99.4 fL (78.0-98.0); Mean Platelet Volume 5.3 fL (7.4-10.4); Platelet Count 220 thou/uL (130-400); RBC Distribution Width 12.9 % (11.5-14.5); Red Blood Cell (RBC) Count 4.03 mill/uL (4.20-5.40); White Blood Cell (WBC) Count 7.5 thou/uL (4.8-10.8)
[2021-03-03 16:08] LABS: ALT (SGPT) 20 U/L (8-55); AST (SGOT) 17 U/L (5-34); Albumin 3.1 g/dL (3.5-5.0); Alkaline Phosphatase 144 U/L (40-110); Anion Gap 20 mmol/L (10-20); BUN (Urea Nitrogen) 6 mg/dL (9.8-20.1); Bilirubin, Total 0.4 mg/dL (0.2-1.2); Calc. Creatinine Clearance 0 mL/min (70-130); Calcium 8.5 mg/dL (7.8-10.44); Carbon Dioxide 24 mmol/L (22-29); Cardiac Risk 2.2 (Less than 4.5); Chloride 100 mmol/L (98-107); Cholesterol 119 mg/dl (< 200 Desired); Globulin 2.3 g/dL (2.4-3.5); Glucose 107 mg/dL (70-105); HDL Cholesterol 55 mg/dL (>60 Neg Risk); LDL Cholesterol, Calculated 51 mg/dL; Potassium 4.5 mmol/L (3.5-5.1); Protein, Total 5.4 g/dL (6.0-8.3); Sodium 139 mmol/L (136-145); Triglycerides 64 mg/dL (Less than 150)
[2021-03-03 16:22] LABS: Thyroid Stimulating Hormone 1.8799 uIU/mL (0.35-4.94)
[2021-03-03 17:53] LABS: Follow-up Chemistry Comp? YES; Follow-up Result - Chemistry REPORT FAXED
[2021-03-04 00:32] LABS: Vitamin D, 25 Hydroxy 28.8 ng/ml (> 30.0)
== END 2021-03-03 11:11 | disposition home or self-care (01) ==
LOC: MADLAB 11:10
PROVIDERS: ATTEND Family Medicine
DX: F31.4 Bipolar disorder, current episode depressed, severe, without psychotic features (principal); F41.9 Anxiety disorder, unspecified; F20.9 Schizophrenia, unspecified; F10.239 Alcohol dependence with withdrawal, unspecified; Z89.511 Acquired absence of right leg below knee
CPT/HCPCS: 80053; 80061; 82306; 84443; 85025

== ENCOUNTER 2021-05-26 10:11 | Outpatient (CLI) | payer MEDICARE, MEDICAID ==
[2021-05-26] MEDS ORDERED: Iopamidol 370 76% 100 ML VIAL ONE (11:53)
== END 2021-05-26 10:12 | disposition home or self-care (01) ==
LOC: MADLAB 10:11
PROVIDERS: ATTEND Physician Assistant Medical
DX: K59.09 Other constipation (principal); R10.9 Unspecified abdominal pain; R11.0 Nausea; N13.30 Unspecified hydronephrosis; K76.0 Fatty (change of) liver, not elsewhere classified; N83.8 Other noninflammatory disorders of ovary, fallopian tube and broad ligament; Z98.890 Other specified postprocedural states; Z89.511 Acquired absence of right leg below knee; Z90.49 Acquired absence of other specified parts of digestive tract; Z90.710 Acquired absence of both cervix and uterus; Z90.5 Acquired absence of kidney
CPT/HCPCS: 36415; 74177; 82565; Q9967